=== PATIENT | female | born 2000 | race Caucasian/White ===

== ENCOUNTER 2020-01-25 14:21 | Emergency (ER) | payer BC, SELFPAY ==
[2020-01-25 14:31] VITALS: BP 131/80; PULSE 93; RESP 16; TEMP 36.7; O2SAT 100
--- NOTE | 2020-01-25 14:42 | ED.URI ---
HPI - URI/Sore Throat General Chief Complaint: Dental/Oral Stated Complaint: sore throat/sores on tongue Time Seen by Provider: 01/25/20 14:33 Source: patient and RN notes reviewed Mode of arrival: ambulatory Limitations: no limitations History of Present Illness HPI Narrative: Patient presents today complaining of possible thrush. She reports white coating to her throat, difficulty swallowing, and large bumps to the posterior tongue since yesterday. She stopped a 3-day course of Bactrim yesterday for a UTI and states the UTI symptoms have resolved. States her oral symptoms are not worsening. She is able to pass water. Denies pain to the tongue. Denies sore throat, except with swallowing. She has not been taking any [id number] medication for symptoms prior to arrival. Denies any known sick contacts. Denies any additional symptoms. Related Data Home Medications Medication Instructions Recorded Confirmed No Home Medications 01/25/20 01/25/20 Allergies Allergy/AdvReac Type Severity Reaction Status Date / Time No Known Allergies Allergy Verified 01/25/20 14:33 Review of Systems Review of Systems: Narrative: CONSTITUTIONAL: Denies body aches, fever, chills, or sweats. EYES: Denies visual changes, redness, or discharge. ENT: Denies rhinorrhea, congestion, sore throat, or otalgia. +tongue bumps, tongue coating, sore throat only with swallowing, difficulty swallowing. CARDIOVASCULAR: Denies chest pain, palpitations, or edema. RESPIRATORY: Denies cough or dyspnea. GASTROINTESTINAL: Denies abdominal pain, nausea, vomiting, or diarrhea. GENITOURINARY: Denies dysuria or hematuria. SKIN: Denies rash, itching, or wounds. MUSCULOSKELETAL: Denies back pain, joint pain, or myalgia. NEUROLOGIC: Denies headache, numbness, tingling, or weakness. PSYCH: Denies depression or anxiety. PMFSH Comments At time of signature, I have reviewed and agree with nursing past medical, surgical, social and family history unless otherwise noted. Please see nursing chart for further information. There is no relevant family history pertinent to the presenting complaint Exam Narrative: Exam Narrative: GENERAL: Well-appearing, well-nourished, and in no acute distress. HEAD: Normocephalic, atraumatic. EYES: EOMI. No redness or drainage. Conjunctivae normal. ENT: Mucous membranes pink and moist. Nares clear. No rhinorrhea. TMs normal bilaterally. Throat mildly erythematous without swelling. Tonsils2+ with mild amount of white exudate. Uvula midline. Tongue is normal without white coating or abnormal bumps. NECK: Normal AROM. Supple. No lymphadenopathy. CHEST: No respiratory distress. Clear to auscultation. HEART: Regular rate and rhythm. No murmur appreciated. Normal peripheral pulses. EXTREMITIES: Normal range of motion. No edema. SKIN: Warm, dry, no rash. Capillary refill normal. Normal skin turgor. NEURO: No focal deficits. Alert and oriented x3. Gait steady. PSYCH: Normal affect. No signs of depression or anxiety. Course Vital Signs Vital signs: Vital Signs Temperature 98.1 F 01/25/20 14:31 Pulse Rate 93 01/25/20 14:31 Respiratory Rate 16 01/25/20 14:31 Blood Pressure 131/80 01/25/20 14:31 Pulse Oximetry 100 01/25/20 14:31 Temperature 98.1 F 01/25/20 14:31 Pulse Rate 93 01/25/20 14:31 Respiratory Rate 16 01/25/20 14:31 Blood Pressure 131/80 01/25/20 14:31 Pulse Oximetry 100 01/25/20 14:31 Reviewed. Pt has been instructed to follow up with her PCP regarding her elevated blood pressure today. MDM - URI/Sore Throat Differential Diagnosis Differential diagnosis: Likely upper respiratory infection, otitis media, viral infection, pharyngitis and other (Strep throat, thrush) Lab Data Attestation: I reviewed the patient's lab results. Labs: Strep Screen Presumptive Negative *(Reference Range: Negative)* Critical Care Time Critical Care Time Critical Care
== END 2020-01-25 15:09 | disposition home or self-care (01) ==
PROVIDERS: Emergency Provider Nurse Practitioner
DX: J02.8 Acute pharyngitis due to other specified organisms (principal)
CPT/HCPCS: 87081; 87880; 99213; G0463

== ENCOUNTER 2020-02-25 20:57 | Emergency (ER) | payer BC, SELFPAY ==
--- NOTE | ~2020-02-25 | XR_ITS ---
EXAMINATION: XR chest 1V portable EXAM DATE: 02/25/2020 22:11 INDICATION: Chest Pain After Drinking Energy Drink At 11pm Yesterday TECHNIQUE: Portable AP frontal chest x-ray was obtained. Comparison is made to prior examination from 12/24/2019. FINDINGS: The lungs are clear. There are no pleural effusions. The cardiomediastinal silhouette is within normal limits. There is no pneumothorax suspected. The bones and soft tissues are unremarkab le. IMPRESSION: Normal chest x-ray exam. Reviewed, dictated and finalized at location A. IMPRESSION: Normal chest x-ray exam.
[2020-02-25 21:00] VITALS: BP 134/68; PULSE 92; RESP 16; TEMP 36.7; O2SAT 100
[2020-02-25 21:12] VITALS: PULSE 95
--- NOTE | 2020-02-25 22:02 | ECG_ITS ---
Measurements Intervals [place] Rate: 87 P: 65 IA: 125 QRS: 41 QRSD: 93 T: 31 QT: 362 QTc: 436 Interpretive Statements SINUS RHYTHM WITH SINUS ARRHYTHMIA BASELINE WANDER- V6 NORMAL ECG Electronically Signed On 02-26-2020 7:07:44 CDT by Chandu Vázquez D.O.
--- NOTE | 2020-02-25 22:04 | ED.CHESTPAIN ---
HPI - Chest Pain General Chief Complaint: Chest Pain Stated Complaint: chest pain Time Seen by Provider: 02/25/20 21:37 Source: patient Mode of arrival: ambulatory Limitations: no limitations History of Present Illness HPI narrative: Patient is 19 years old white female presents with sternal dull aching pain started last night. Worse with certain position, breathing or stretching. Patient denies any fever, chills, nausea, vomiting, shortness of breath, back pain. History of IBS and anxiety. Patient denies any smoking, drinking or using drugs. EKG on arrival showed normal sinus rhythm at 82 bpm, normal EKG. Related Data Home Medications Medication Instructions Recorded Confirmed No Home Medications 01/25/20 01/25/20 Allergies Allergy/AdvReac Type Severity Reaction Status Date / Time No Known Allergies Allergy Verified 02/25/20 21:15 Review of Systems Review of Systems: Narrative: CONSTITUTIONAL: Denies fever, chills, or sweats. EYES: Denies visual changes, redness, or discharge. ENT: Denies rhinorrhea, congestion, sore throat, or otalgia. CARDIOVASCULAR: Denies chest pain, palpitations, or edema. RESPIRATORY: Denies cough or dyspnea. GASTROINTESTINAL: Denies abdominal pain, nausea, vomiting, or diarrhea. GENITOURINARY: Denies dysuria or hematuria. SKIN: Denies rash or itching. MUSCULOSKELETAL: Denies back pain, joint pain, or myalgia. NEUROLOGIC: Denies headache, numbness, or weakness. PSYCHIATRIC: Denies anxiety or depression. PMFSH Past Medical History Medical History (Updated 02/25/20 @ 22:31 by Roshan Nunez MD) Anxiety IBS (irritable bowel syndrome) Social History Social History (Updated 02/25/20 @ 22:27 by Roshan Nunez MD) Social History: Patient denies drinking, smoking or using drugs Second hand tobacco smoke exposure: No Exam Narrative: Exam Narrative: General appearance: Well-developed, well-nourished Skin: Normal color Head: Normocephalic, nontraumatic Eyes: Clear conjunctiva ENT: Oropharynx normal, ears normal, nose normal Neck: Supple, nontender Chest and respiratory: Airway patent, no respiratory distress, no accessory muscle use. Diffuse tenderness of the sternum with light palpation. Heart: Regular rate/rhythm Abdomen: Soft, nontender, no organomegaly, quiet bowel sounds Vascular: Normal peripheral pulses, normal capillary refill. 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 My concern is costochondritis. EKG within normal limit, chest x-ray showed no acute abnormality. Patient will be discharged on anti-inflammatory. Differential Diagnosis Differential diagnosis: Likely atypical chest pain, costochondritis and chest pain ECG Data EKG #1: Interpretation: EKG showed normal sinus rhythm at 82 bpm, normal EKG. No previous EKG for comparison Critical Care Time Critical Care Time Critical Care Time: No Discharge Plan Discharge Clinical Impression: Costalchondritis Patient Dispositio
[2020-02-25] MEDS: HYDROcodone/acetaminophen (*CRX) 5-325 MG TABLET 1 TAB PO (22:09)
[2020-02-25] MEDS: IBUPROFEN 600 MG TABLET PO (22:09)
== END 2020-02-25 22:39 | disposition home or self-care (01) ==
PROVIDERS: Emergency Provider Emergency Medicine
DX: M94.0 Chondrocostal junction syndrome [Tietze] (principal)
CPT/HCPCS: 71045; 93005; 99283; A9270

== ENCOUNTER 2020-04-15 08:35 | Emergency (ER) | payer BC, SELFPAY ==
[2020-04-15 08:42] VITALS: BP 138/89; PULSE 126; RESP 16; TEMP 37.2; O2SAT 97
--- NOTE | 2020-04-15 09:05 | ED.FEVER ---
HPI - Fever General Chief Complaint: Fever Stated Complaint: COVID Positive, SOB, Fever Time Seen by Provider: 04/15/20 08:54 Source: patient Mode of arrival: ambulatory Limitations: no limitations History of Present Illness HPI Narrative: 19 years old white female been having Covid symptoms for the last 3 days, fever, body aches, not feeling well, Covid test this morning came back positive. Patient denies any chest pain, or shortness of breath. 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 ENT: Denies rhinorrhea, congestion, sore throat, or otalgia. CARDIOVASCULAR: Denies chest pain, palpitations, or edema. RESPIRATORY: Denies cough or dyspnea. GASTROINTESTINAL: Denies abdominal pain, nausea, vomiting, or diarrhea. GENITOURINARY: Denies dysuria or hematuria. SKIN: Denies rash or itching. MUSCULOSKELETAL: Body aches NEUROLOGIC: Denies headache, numbness, or weakness. PSYCHIATRIC: Denies anxiety or depression. 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 Critical Care Time Critical Care Time Critical Care Time: No Discharge Plan Discharge Clinical Impression: COVID-19 virus infection Patient Disposition: Home, Self-Care Condition: Stable Instructions: How To Wash Your Hands (ED), Droplet Precautions (ED), COVID-19 (Coronavirus Disease 2019) (ED), Face Coverings (Masks) and COVID-19 (ED) Additional Instructions: Return if symptoms are worsening , call your family physician for appointment, take ibuprofen, Tylenol as as needed for aches and pain, continue home medications. Remain isolated at home. Prescriptions: No Action levonorgestrel-ethinyl estrad [Priscilla (28)] 0.15-0.03 mg Tablet 1 tablet PO DAILY RF: 0 Follow-up/Referrals: PHYSICIAN,JOB COACHING [Primary Care Provider] - Chucho Byers MD [Physician] -
[2020-04-15 09:38] VITALS: BP 128/89; PULSE 131; RESP 16
== END 2020-04-15 09:38 | disposition home or self-care (01) ==
PROVIDERS: Emergency Provider Emergency Medicine
DX: U07.1 COVID-19 (principal); K58.9 Irritable bowel syndrome, unspecified
CPT/HCPCS: 99281

== ENCOUNTER 2020-09-02 17:04 | Outpatient (CLI) | payer BC, SELFPAY | END 2020-09-02 17:05 | disposition home or self-care (01) | LOC: ANHCOVIDVC 17:04 | DX: Z23 Encounter for immunization (principal) | CPT/HCPCS: 0001A; 91300 ==

== ENCOUNTER 2020-09-23 13:26 | Outpatient (CLI) | payer BC, SELFPAY | END 2020-09-23 13:27 | disposition home or self-care (01) | LOC: ANHCOVIDVC 13:26 | DX: Z23 Encounter for immunization (principal) | CPT/HCPCS: 0002A; 91300 ==

== ENCOUNTER → 2020-11-15 15:22 | Outpatient (CLI) | payer BC, SELFPAY ==
--- NOTE | ~2020-11-15 | US_ITS ---
EXAMINATION: US thyroid EXAM DATE: 11/15/2020 15:40 INDICATION: Hypothyroidism. TECHNIQUE: Multiple grayscale and Doppler images of the thyroid were obtained (by a technologist who performed the scan) and subsequently reviewed. Individual nodules and recommendations may be reporte d in accordance with TI-RADS system as designated by the 2017 ACR White Paper TI-RADS committee. The re is no prior study for comparison. FINDINGS: Right thyroid lobe measures 3.2 x 1.3 x 1.0 cm, the left measuring 2.8 x 1.0 x 1.0 cm. Mildly diffuse ly heterogeneous thyroid echogenicity without focal nodule identified. Dimensions are within normal s ize limits. IMPRESSION: 1. Unremarkable thyroid ultrasound exam. Reviewed, dictated and finalized at location A.
== END ==
PROVIDERS: PCP Emergency Medicine; Visit Provider Emergency Medicine
DX: E03.9 Hypothyroidism, unspecified (principal)
CPT/HCPCS: 76536

== ENCOUNTER 2022-07-18 21:16 | Emergency (ER) | payer BC, SELFPAY ==
--- NOTE | ~2022-07-18 | XR_ITS ---
EXAM: XR ankle RT min 3V DATE: 07/18/2022 22:07 HISTORY: right ankle injury, fell down steps. Medial pain . COMPARISON: None available. FINDINGS: Normal mineralization. No fracture or dislocation. No lytic or blastic lesion. Joint space s are maintained. Achilles enthesopathy. No erosion or periosteal change. Soft tissues swelling about the ankle. Small ankle joint effusion. IMPRESSION: No acute osseous finding in the right ankle. Reviewed, dictated and finalized at location K.
[2022-07-18 21:26] VITALS: BP 155/92; PULSE 99; RESP 14; TEMP 37.4; O2SAT 100
--- NOTE | 2022-07-18 22:10 | ED.LOWEXIN ---
HPI - Extremity Injury (Lower) General Chief Complaint: Extremity Injury, Lower <Cris Salinas PA-C - Last Filed: 07/18/22 23:40> Stated Complaint: right foot injury, fell down 3-4 steps <Cris Salinas PA-C - Last Filed: 07/18/22 23:40> Time Seen by Provider: 07/18/22 21:53 <Cris Salinas PA-C - Last Filed: 07/18/22 23:40> History of Present Illness HPI Narrative: 21-year-old female with history of anxiety and IBS reports for right ankle pain after a fall that occurred at 1600. Patient states she was walking on the stairs, felt her foot slipped from her sock on the carpet, overcompensated the fall and plantarflexed her ankle while bearing weight on her ankle. Patient reports falling to her bottom on the stairs. Denies back or glute pain. Denies LOC, hitting her head. She is reporting anterior ankle pain that radiates medially. She is ambulating without assistance, limping. Reports taking 1000 mg of Tylenol without relief. Denies numbness or tingling, weakness, prodromal symptoms prior to fall. <KYLE Nation Last Filed: 07/18/22 23:40> Related Data Home Medications: Home Medications Medication Instructions Recorded Confirmed levonorgestrel 0.15 mg-ethinyl 1 tablet PO DAILY 04/15/20 estradiol 0.03 mg tablet (Priscilla (28)) <Crsi Salinas PA-C - Last Filed: 07/18/22 23:40> Allergies/Adverse Reactions: Allergies Allergy/AdvReac Type Severity Reaction Status Date / Time No Known Allergies Allergy Verified 04/15/20 08:45 <KYLE Nation Last Filed: 07/18/22 23:40> Review of Systems Review of Systems: CONSTITUTIONAL: Denies fever, chills EYES: Denies visual changes, redness, or discharge. ENT: Denies rhinorrhea, congestion, sore throat, or otalgia. CARDIOVASCULAR: Denies chest pain, palpitations, or edema. RESPIRATORY: Denies cough or dyspnea. GASTROINTESTINAL: Denies abdominal pain, nausea, vomiting, or diarrhea. GENITOURINARY: Denies dysuria or hematuria. SKIN: Denies rash or itching. MUSCULOSKELETAL: Denies back pain, joint pain, or myalgia. NEUROLOGIC: Denies headache, numbness, dizziness, or weakness. PSYCHIATRIC: Denies anxiety or depression. <Cris Salinas PA-C - Last Filed: 07/18/22 23:40> PMFSH Past Medical History Medical History: Medical History Anxiety IBS (irritable bowel syndrome) <Cris Salinas PA-C - Last Filed: 07/18/22 23:40> Social History Social History: Social History Social History: Patient denies drinking, smoking or using drugs Second hand tobacco smoke exposure: No <Cris Salinas PA-C - Last Filed: 07/18/22 23:40> Exam Narrative: GENERAL: Well-appearing, well-nourished, and in no acute distress. Patient resting comfortably in the bed. She is pleasant and conversational. HEAD: Normocephalic, atraumatic. CHEST: Clear to auscultation. No respiratory distress. No wheezes rales or rhonchi HEART: Regular rate and rhythm. No murmur heard. Normal peripheral pulses. ABDOMEN: Soft, nontender, nondistended, normal active bowel sounds. EXTREMITIES: RLE: Tenderness over the anterior ankle, navicular bone, medial malleolus. No tenderness overlying proximal fibula or tibea, metacarpals, toes, lateral malleolus, Achilles tendon, tibia, fibula, calcaneus. Negative high squeeze. Patient able to wiggle her toes. Limited inversion, eversion, and flexion secondary to pain. She is able to extend fully. No overlying skin changes, ecchymosis, edema. Compartments throughout extremity soft. Sensation intact. DP pulse 2+. Ambulating in the exam room with a limp. SKIN: Warm, dry, no rash. NEURO: No focal deficits. Alert and oriented x3. PSYCH: Normal mood and affect. <Cris Salinas PA-C - Last Filed: 07/18/22 23:40> Course BIKE ASSEMBLER/PA Physician Supervision For this patien
[2022-07-18] MEDS: IBUPROFEN 600 MG TABLET PO (22:19)
== END 2022-07-18 22:52 | disposition home or self-care (01) ==
PROVIDERS: Emergency Provider Physician Assistant; PCP Emergency Medicine
DX: S93.401A Sprain of unspecified ligament of right ankle, initial encounter (principal); S96.911A Strain of unspecified muscle and tendon at ankle and foot level, right foot, initial encounter; K58.9 Irritable bowel syndrome, unspecified; W10.9XXA Fall (on) (from) unspecified stairs and steps, initial encounter
CPT/HCPCS: 73610; 99283; A9270